=== PATIENT | male | born 1940 | race Hispanic/Latino ===

== ENCOUNTER 2018-06-20 09:21 | Day surgery (SDC) | payer MEDICARE, BC ==
[2018-06-20] MEDS ORDERED: cefTRIAXone IV 1 gm in Dextros 0 ML IVPB ONE (10:10)
[2018-06-20] MEDS ORDERED: Iohexol 240 (50 ml) ONE ×2 (10:10→11:32)
[2018-06-20] MEDS ORDERED: Lidocaine 2% Jelly (Uro-Jet) ONE (11:32)
[2018-06-20] MEDS ORDERED: cefTRIAXone IV 1 gm in Dextros 50 ML IVPB ONE (11:32)
[2018-06-20] MEDS ORDERED: Midazolam 2 MG/2 ML VIAL ONE (11:50)
[2018-06-20] MEDS ORDERED: Propofol 10 mg/ml Inj (20 ML) ONE (11:50)
[2018-06-20] MEDS ORDERED: ePHEDrine 50 mg/ml Inj ONE (13:19)
[2018-06-20] MEDS ORDERED: DiphenhydrAMINE 50 mg/ml Inj ONE (13:19)
--- NOTE | 2018-06-20 13:25 | PCM.SURG1 ---
Surgeon's Initial Post Op Note - Surgeon's Notes Surgeon: Fanny Yee Medical Lab Assistant: none Type of Anesthesia: General LMA Pre-Operative Diagnosis: hematuria, R hydronephrosis Operative Findings: Erythema of R renal calices, randalls plaque. bph Post-Operative Diagnosis: same. No hydronephrosis. No R ureteral tumor. Possible L upper uretral filling defect Operation Performed: cysto, bilat rtg pyelogram. R uretro-renoscopy,. R renal caliceal bx and laser fulg. R uretral stent insertion. L rtg pyelogram. Insertion of L ureteral stent. EUA Specimen/Specimens Removed: urine. caliceal bx Estimated Blood Loss: EBL {In ML}: 7 Blood Products Given: N/A Post-Op Condition: Good Date of Surgery/Procedure: 06/20/18 Time of Surgery/Procedure: 13:15
[2018-06-20] MEDS ORDERED: HYDROmorphone 0.5 mg/0.5 ml ISec IVP PRN (13:27)
[2018-06-20] MEDS ORDERED: Lactated Ringer's 1,000 ML IV ONE (13:30)
[2018-06-20] MEDS ORDERED: Oxycodone/Acetaminophen 5/325 mg Tab PO PRN (14:36)
[2018-06-20 15:58] VITALS: BP 141/79; PULSE 75; RESP 15; TEMP 97.8; O2SAT 98
--- NOTE | 2018-06-20 17:33 | RAD ---
Date of service: 06/20/2018 PROCEDURE: Intraoperative Fluoroscopy. HISTORY: HEMATURIA AND RT. HYDRONEPHROSIS FINDINGS: Fluoroscopic assistance was provided for bilateral retrograde and stent placement. Please refer to the operative report from Dr. THOMAS, [place]. Total fluoroscopic time (continuous mode) utilized during the procedure 118.2 (seconds). Dose report: DLP 1.64 (mGy/ m2):
--- NOTE | 2018-06-21 15:58 | RAD ---
Date of service: 06/20/2018 HISTORY: HEMATURIA AND RT. HYDRONEPHROSIS COMPARISON: No prior. FINDINGS: BOWEL: A product management intern radiograph demonstrates the bowel gas pattern to be unremarkable. No hepatic or splenic enlargement is appreciated. No masses or abnormal calcifications are identified. A 2nd film is labeled last film. This demonstrates bilateral ureteral stents. There is a small amount of residual contrast within the pelvicaliceal system bilateral following retrograde pyeloureterography. BONES: Normal. OTHER FINDINGS: None. IMPRESSION: Bilateral ureteral stents inserted.
--- NOTE | 2018-06-21 21:09 | OP ---
Copied To: Susan Yee MD Attending MD: Susan Yee MD PROCEDURE DATE: 06/20/2018 PREOPERATIVE DIAGNOSES: 1. Hematuria. 2. Right hydronephrosis. 3. Right ureteral tumor. POSTOPERATIVE DIAGNOSIS: No ureteral tumor found. PROCEDURES: Cystoscopy. Right retrograde pyelogram. Right ureterorenoscopy. Right renal calyceal biopsy and laser fulguration. Insertion of right ureteral stent. Left retrograde pyelogram. Insertion of left ureteral stent. Exam under anesthesia. OPERATING SURGEON: Susan Yee MD PROCEDURE FOLLOWS: The patient received perioperative antibiotics. Procedure was performed under general anesthesia. The patient was placed in lithotomy position. Genitalia were prepped and draped sterilely. A 22-Zambian cystoscope sheath was introduced under direct vision. Urethra, prostate, and bladder were inspected. FINDINGS: There was no stricture in the anterior urethra. There was evidence of trilobar prostatic hypertrophy. Prostatic urethra was occlusive. There were no mucosal lesions within the prostate. There was no bladder neck contracture. Prostatic urethra was approximately 3 cm in length. The bladder was inspected. There was no bladder tumor. There was no bladder stone. Urine was sent for bacteriologic examination. The ureteral orifices were identified and were normal in position and shape. There was no bladder tumor. There was no bladder stone. There was no bladder diverticulum. There was moderate bladder trabeculation. Procedure was formed under video endoscopic control as well as under fluoroscopic control. Occlusive tip right retrograde ureteral pyelogram was performed. Iodinated contrast dye was instilled via cone tip catheter into the right ureteral orifice. The right ureter and kidney were viewed sequentially. There was no evidence of obstruction or hydronephrosis within the right ureter. There was no filling defect within the right ureter. There was mild caliectasis. There was possible small filling defect noted in the mid and lower calyces of the right. A 0.035-inch guidewire was inserted into the right ureteral orifice and passed up to level of the kidney. A 10-Zambian double-lumen ureteral catheter was inserted over the guidewire into the distal ureter until lateral ureteral dilation. A second guidewire was inserted. A 7-Zambian flexible ureteroscope was advanced over the working wire under fluoroscopic control as well as under video endoscopic control. The ureteroscope was introduced through the cystoscope sheath. Ureteroscope was introduced into the ureter and up to the kidney. There was no evidence of ureteral tumor or obstruction. Ureteroscope passed in atraumatic fashion. The renal pelvis and calyces were inspected. There were a few small Kulwinder plaques noted on calyces. There was no free floating stone. There was no tumor identified. There was mild erythema of the collecting system of the middle calyx, with some linear pattern to the erythema. Freight Booker area was biopsied with the 3-Zambian flexible ureteroscopic basket. Two small fragments of tissue were obtained. Fulguration was performed with the 200 micron laser fiber using the holmium laser in the coagulation mode. The ureteroscope was removed under direct vision. There were no other abnormal findings. A 6-Zambian multi-length stent was inserted over the six remaining safety wire. Proper stent position was confirmed with fluoroscopy and endoscopy. Left retrograde ureteropyelogram was performed using the cone-tip catheter. Iodinated contrast dye was instilled via cone-tip catheter into left ureteral orifice. The left retrograde pyelogram demonstrated no evidence of obstruction of the ureteral collecting system. There was noted to be a possible filling defect just below the ureteropelvic junction. A 0.035-inch guidewire was inserted into the ureter up to level of the kidney. A 6-Zambian multi-length stent was inserted over the guidewire. Proper stent position was confirmed with fluoroscopy and endoscopy. The bladder was reinspected and confirmed the above findings. The bladder was then drained. Cystoscope sheath was removed. Rectal examination/exam under anesthesia was performed. There was no abnormal pelvic mass fixation or induration. Prostate was supple and smooth approximately 25 g to 30 g in size, without fixation, induration or nodularity. The patient tolerated the procedure without complication. Susan Yee MD
== END 2018-06-20 15:57 | disposition home or self-care (01) ==
LOC: C.SDS 09:21
PROVIDERS: ATTEND Urology
DX: N13.30 Unspecified hydronephrosis (principal); R31.0 Gross hematuria; N40.0 Benign prostatic hyperplasia without lower urinary tract symptoms
CPT/HCPCS: 50200; 52332; 74022; 87086; 88305; C1725; C1758; C1769; C2617; J0696; J1170; J7120

== ENCOUNTER 2018-06-24 10:01 | Day surgery (SDC) | payer MEDICARE, BC ==
[2018-06-24] MEDS ORDERED: cefTRIAXone IV 1 gm in Dextros 50 ML IVPB ONE (11:37)
[2018-06-24] MEDS ORDERED: Lidocaine 2% Jelly (Uro-Jet) ONE (11:37)
[2018-06-24] MEDS ORDERED: Propofol 10 mg/ml Inj (20 ML) ONE (11:49)
--- NOTE | 2018-06-24 12:21 | PCM.SURG1 ---
Surgeon's Initial Post Op Note - Surgeon's Notes Surgeon: Fanny Yee Airplane Cleaner: none Type of Anesthesia: IV Sedation, Local Pre-Operative Diagnosis: Hematuria Operative Findings: same Post-Operative Diagnosis: same Operation Performed: cysto. bilat stent removal Specimen/Specimens Removed: stents removed Estimated Blood Loss: EBL {In ML}: 0 Blood Products Given: N/A Drains Used: No Drains Post-Op Condition: Good Date of Surgery/Procedure: 06/24/18 Time of Surgery/Procedure: 12:21
[2018-06-24] MEDS ORDERED: HYDROmorphone 0.5 mg/0.5 ml ISec IVP PRN (12:22)
[2018-06-24] MEDS ORDERED: Lactated Ringer's 1,000 ML IV SCH (12:30)
[2018-06-24 13:12] VITALS: RESP 16
[2018-06-24 13:56] VITALS: BP 149/60; PULSE 64; TEMP 97.6; O2SAT 98
--- NOTE | 2018-06-26 01:50 | OP ---
Copied To: Susan Yee MD Attending MD: Susan Yee MD PROCEDURE DATE: 06/24/2018 DESCRIPTION OF PROCEDURE: As follows: The patient received perioperative antibiotics. Street Cleaning Equipment Operator film of the abdomen was obtained. Bilateral ureteral stents were identified. Anesthesia was provided by the anesthesiologist. The patient was placed in lithotomy position. Genitalia prepped and draped sterilely. Procedure was performed under video endoscopic control as well as under fluoroscopic control. The 22-Vietnamese cystoscope sheath was introduced under direct vision. Urethra, prostate, and bladder were inspected. There was noted to be moderate hematuria. Each ureteral stent was identified and grasped with rigid grasping forceps. The stents were removed. Fluoroscopic control was performed as well. The stents were removed intact. The bladder was then drained. Cystoscope sheath removed. Rectal examination was performed. Prostate was supple and smooth without fixation, induration, or nodularity. The patient tolerated the procedure without complication. Susan Yee MD
== END 2018-06-24 13:52 | disposition home or self-care (01) ==
LOC: C.SDS 10:01
PROVIDERS: ATTEND Urology
DX: R31.0 Gross hematuria (principal)
CPT/HCPCS: 52310; J0696

== ENCOUNTER 2018-07-07 09:09 | Day surgery (SDC) | payer MEDICARE, BC ==
[2018-07-07] MEDS ORDERED: Absorbable Gelatin Sponge Size 12-7 ONE (09:28)
[2018-07-07] MEDS ORDERED: Midazolam 2 MG/2 ML VIAL ONE (10:43)
--- NOTE | 2018-07-07 10:45 | CP.SDSHP ---
Same Day Surgery H & P - History Proposed Procedure: Right renal mass image guided biopsy Pre-Op Diagnosis: Right renal mass found on outside CT - Allergies Allergies: Allergies No Known Allergies Allergy (Verified 06/20/18 09:43) - Physical Exam Vital Signs: Vital Signs 07/07/18 09:44 Temperature 97.8 F Pulse Rate 65 Respiratory 20 Rate Blood Pressure 138/78 O2 Sat by Pulse 100 Oximetry Mental Status: Alert & Oriented x3 Neuro: WNL Heart: WNL Lungs: WNL - Impression Pt. Evaluated Today:Candidate for Anesthesia & Procedure: Yes Short Stay Discharge - Short Stay Discharge Admitting Diagnosis/Reason for Visit: MALIGNANT NEOPLASM OF RIGHT KIDNEY, EXCEPT RENAL P Disposition: HOME/ ROUTINE
--- NOTE | 2018-07-07 11:35 | PCM.SURG1 ---
Surgeon's Initial Post Op Note - Surgeon's Notes Surgeon: Yogesh Dietetic Assistant: None Type of Anesthesia: IV Sedation, Local Pre-Operative Diagnosis: Right renal mass Operative Findings: Right renal mass Post-Operative Diagnosis: Right renal mass Operation Performed: USG right renal mass biopsy. Specimen/Specimens Removed: 18G core biopsy samples were obtained. Estimated Blood Loss: EBL {In ML}: 1 Blood Products Given: N/A Drains Used: No Drains Post-Op Condition: Good Date of Surgery/Procedure: 07/07/18 Time of Surgery/Procedure: 11:25
[2018-07-07] MEDS ORDERED: Sodium Chloride 0.9% 1,000 ML IV ONE ×2 (11:50→14:30)
[2018-07-07 17:24] VITALS: BP 126/52; PULSE 63; RESP 19; TEMP 98.1; O2SAT 99
--- NOTE | 2018-07-19 21:51 | US ---
Right renal mass biopsy History: Right renal mass. Comparison: Comparison is made to CT scan done at outside institution. Anesthesia: Local indicated adenoids anesthesia care. Procedure and findings: Consent was obtained from the patient after discussing relative risks and benefits. The right flank region was prepped and draped in the usual sterile techniques. Initial ultrasound evaluation was obtained to identified the infiltrative mass in the right kidney. Percutaneous access site was chosen based on these images. 1% buffered lidocaine was used to anesthetize the skin and the underlying soft tissues. Using a 17 gauge coaxial needle, the infiltrative mass in the right kidney was accessed. After the inner stylet was removed the18 gauge biopsy system was introduced and core biopsy samples were obtained. Subsequently, the biopsy tract was embolized with 3-4 cc of Gel-Foam slurry. No post biopsy hematoma was identified on ultrasound images. The patient tolerated the procedure well without any adverse events. Impression: Successful ultrasound-guided biopsy of the right renal mass.
== END 2018-07-07 17:16 | disposition home or self-care (01) ==
LOC: C.SPRAD 09:09
PROVIDERS: ATTEND Orthopaedic Surgery Sports Medicine
DX: C64.1 Malignant neoplasm of right kidney, except renal pelvis (principal)
CPT/HCPCS: 49180; 50200; 76942; 88305; 88342; 99152; J2250; J2405; J3010; J7030

== ENCOUNTER 2018-07-17 13:43 | Inpatient (IN) | payer MEDICARE, BC ==
--- NOTE | 2018-07-17 14:39 | C.PDOC ---
History Of Present Illness 77 y/o male sent in by urologist for evaluation of persistent hematuria. Patient was seen here 06/29/18 for the same and had bilateral ureteral stents removed. He reports having intermittent hematuria and urinary frequency, without urinary obstruction, since then. Otherwise denies fever, chills, nausea , vomiting, diarrhea, or other complaints. Urologist: Dr. Susan Yee PMD: Dr. Barak Hernandes Time Seen by Provider: 07/17/18 13:56 Chief Complaint (Nursing): Male Genitourinary History Per: Patient History/Exam Limitations: no limitations Onset/Duration Of Symptoms: Persistent Current Symptoms Are (Timing): Still Present Associated Symptoms: Urinary Symptoms Additional History Per: Prior Records Past Medical History Reviewed: Historical Data, Nursing Documentation, Vital Signs Vital Signs: Last Vital Signs Temp 98 F 07/17/18 17:51 Pulse 78 07/17/18 17:51 Resp 18 07/17/18 17:51 BP 116/83 07/17/18 17:51 Pulse Ox 98 07/17/18 17:51 - Medical History PMH: COPD (on x ray), HTN (???), Chronic Kidney Disease, Sleep Apnea (no c pap) Other Surgeries: Cystoscopy Family History: States: No Known Family Hx - Social History Hx Alcohol Use: No Hx Substance Use: No - Immunization History Hx Tetanus Toxoid Vaccination: No Hx Influenza Vaccination: No Hx Pneumococcal Vaccination: No Review Of Systems Except As Marked, All Systems Reviewed And Found Negative. Constitutional: Negative for: Fever, Chills, Sweats Cardiovascular: Negative for: Chest Pain Respiratory: Negative for: Shortness of Breath Gastrointestinal: Negative for: Vomiting, Abdominal Pain, Diarrhea Genitourinary: Positive for: Frequency, Hematuria. Negative for: Incontinence Neurological: Negative for: Weakness, Numbness, Incoordination Physical Exam - Physical Exam Appears: No Acute Distress, Other (Elderly) Skin: Dry, Pale Head: Atraumatic, Normacephalic Eye(s): bilateral: Normal Inspection, PERRL, EOMI Oral Mucosa: Moist Neck: Normal ROM Chest: Symmetrical Cardiovascular: Rhythm Regular, No Murmur Respiratory: Normal Breath Sounds, No Rales, No Rhonchi, No Wheezing Gastrointestinal/Abdominal: Soft, No Tenderness (and no suprapubic fullness), No Guarding, No Rebound Back: Normal Inspection, No CVA Tenderness, No Vertebral Tenderness Extremity: Bilateral: Atraumatic, Normal Color And Temperature, Normal ROM Neurological/Psych: Oriented x3, Normal Speech Gait: Steady ED Course And Treatment - Laboratory Results Result Diagrams: 07/17/18 14:37 07/17/18 14:37 Lab Interpretation: Abnormal (ua: gross hematuria, bladder scan 200 cc post- void. No chowdhury indicated.) ECG: Interpreted By Me ECG Rhythm: Sinus Rhythm ECG Interpretation: Normal Rate From EC O2 Sat by Pulse Oximetry: 100 (RA) Pulse Ox Interpretation: Normal - Radiology CXR: Interpreted by Me CXR Interpretation: Yes: No Acute Disease Reevaluation Time: 15:39 Reassessment Condition: Improved - Physician Consult Information Outcome Of Conversation: 1500: d/w Dr. Susan Yee- ca to admit to any service and will consult. Plan for R renal CA resection. 1500: d/w Dr. Kin Harvey- [facility], ca to admit. Medical Decision Making Medical Decision Making: Impression: Hematuria, urinary frequency Plan: --Bladder scan --Blood work --Coag panel --Type/screen --Urinalysis --chest x-ray --EKG --Reassess and dispo 2pm Call placed to Dr. Susan Yee. persistent hematuria probably related to R renal cell CA HGB 10, hold off on blood tx for now per Urology Disposition Doctor Will See Patient In The: Hospital Counseled Patient/Family Regarding: Studies Performed, Diagnosis - Disposition Disposition: HOSPITALIZED Disposition Time: 15:40 Condition: GOOD - Clinical Impression Clinical Impression: Hematuria, Cancer of right kidney - Scribe Statement The provider has reviewed the documentation as recorded by the Scribe (Dasia Hernandez) Provider Attestation: All medical record entries made by the Scribe were at my direction and personally dictated by me. I have reviewed the chart and agree that the record accurately reflects my personal performance of the history, physical exam, medical decision making, and the department course for this patient. I have also personally directed, reviewed, and agree with the discharge instructions and disposition.
[2018-07-17 14:41] LABS: BASO % 0.3 % (0.0-2.0); EOS % 0.2 % (0.0-4.0); LYMPH # 0.9 K/uL (1.0-4.3); LYMPH % 14.5 % (20.0-40.0); MEAN CELL VOLUME 77.2 fL (80.0-94.0); MEAN CORPUSCULAR HEMOGLOBIN 25.9 pg (27.0-31.0); MEAN CORPUSCULAR HGB CONC 33.6 g/dL (33.0-37.0); MEAN PLATELET VOLUME 7.1 fL (7.2-11.7); MONO # 0.4 K/uL (0.0-0.8); MONO % 7.1 % (0.0-10.0); NEUT # 4.8 K/uL (1.8-7.0); NEUT % 77.9 % (50.0-75.0); RBC 3.88 Mil/uL (4.40-5.90); RED CELL DISTRIBUTION WIDTH 15.6 % (11.5-14.5); WHITE BLOOD COUNT 6.1 K/uL (4.8-10.8)
[2018-07-17 14:51] LABS: INR 1.1; PROTHROMBIN TIME 12.1 SECONDS (9.7-12.2)
[2018-07-17 15:06] LABS: ALB/GLOB RATIO 1.3 (1.0-2.1); ALBUMIN 4.1 g/dL (3.5-5.0); ALT/SGPT 21 U/L (21-72); AST/SGOT 16 U/L (17-59); BLOOD UREA NITROGEN 24 mg/dL (9-20); CALCIUM 9.6 mg/dl (8.6-10.4); GFR NON-AFRICAN AMERICAN 49
[2018-07-17 15:12] LABS: URINE BILIRUBIN NEGATIVE (NEGATIVE); URINE BLOOD 3+ (NEGATIVE); URINE CLARITY Hazy (Clear); URINE COLOR Red (YELLOW); URINE GLUCOSE (UA) NORMAL (Normal); URINE LEUKOCYTE ESTERASE NEG Leu/uL (Negative); URINE PROTEIN 2+ mg/dL (NEGATIVE); URINE UROBILINOGEN NORMAL mg/dL (0.2-1.0)
[2018-07-17 15:19] LABS: B-TYPE NATRIURETIC PEPTIDE 583 pg/mL (0-900)
--- NOTE | 2018-07-17 16:21 | RAD ---
Date of service: 07/17/2018 PROCEDURE: CHEST RADIOGRAPH, 1 VIEW HISTORY: SOB COMPARISON: None available. FINDINGS: LUNGS: No acute pulmonary disease appreciated bilaterally. PLEURA: No pneumothorax or pleural fluid seen. CARDIOVASCULAR: Mild cardiomegaly. No pulmonary vascular congestion. OSSEOUS STRUCTURES: No significant abnormalities. VISUALIZED UPPER ABDOMEN: Normal. OTHER FINDINGS: None. IMPRESSION: Mild cardiomegaly. No pulmonary vascular congestion. No infiltrates bilaterally.
[2018-07-17] MEDS ORDERED: Sodium Chloride 0.9% 1,000 ML ONE (16:38)
[2018-07-17] MEDS: Sodium Chloride 0.9% 1,000 ML IV SCH (17:15)
[2018-07-17 18:49] VITALS: RESP 20
[2018-07-18] MEDS: Sodium Chloride 0.9% 1,000 ML IV SCH ×3 (02:54→21:35)
--- NOTE | 2018-07-18 08:18 | CP.PCM.PN ---
Subjective - Date & Time of Evaluation Date of Evaluation: 07/18/18 Time of Evaluation: 08:00 - Subjective Subjective: PGY-2 Med Note- Dr. Kin Harvey's service 77 year old male with past medical history of hematuria (since December 2017) presents to the hospital for hematuria. Patient states it first started in December and at that time he had multiple procedures done at [facility]. Patient states while at [facility] he went into cardiac arrest during one of the procedures. Patient states he has pain every time he urinates and his urine is bright red and sometimes he urinates clots also. He denies abdominal pain, fever, nausea, vomiting, headache, shortness of breath or chest pain. Urology: Dr. Susan Yee Past Medical History: hematuria Past Surgical History: 06/20/18: cysto, bilat rtg pyelogram. R uretro-renoscopy, . R renal caliceal bx and laser fulg. R uretral stent insertion. L rtg pyelogram. Insertion of L ureteral stent. 06/24/18: cysto. bilat stent removal. 07/07/48: USG right renal mass biopsy. 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 Objective - Vital Signs/Intake and Output Vital Signs (last 24 hours): Temp Pulse Resp BP Pulse Ox 97.8 F 57 L 20 132/72 99 07/18/18 07:25 07/18/18 07:25 07/18/18 07:25 07/18/18 07:25 07/18/18 07:25 Intake and Output: 07/18/18 07/18/18 06:59 18:59 Intake Total 1000 Balance 1000 - Medications Medications: Current Medications Cefepime HCl 1 gm/ Dextrose 50 mls @ 100 mls/hr IVPB DAILY SAL PRN Reason: Protocol Last Admin: 07/17/18 16:55 Dose: 100 mls/hr Sodium Chloride (Sodium Chloride 0.9%) 1,000 mls @ 100 mls/hr IV .Q10H SAL Last Admin: 07/18/18 02:54 Dose: 100 mls/hr Multivitamins (Hexavitamin) 1 tab PO DAILY SAL Pantoprazole Sodium (Protonix Susp) 40 mg PO DAILY [facility] Tamsulosin HCl (Flomax) 0.4 mg PO DAILY SAL - Labs Labs: 07/17/18 14:37 07/17/18 14:37 PT 12.1 SECONDS (9.7-12.2) 07/17/18 14:37 INR 1.1 07/17/18 14:37 APTT 31 SECONDS (21-34) 07/17/18 14:37 - Constitutional Appears: No Acute Distress - Head Exam Head Exam: ATRAUMATIC, NORMAL INSPECTION - Eye Exam Eye Exam: EOMI, Normal appearance, PERRL Pupil Exam: NORMAL ACCOMODATION - ENT Exam ENT Exam: Mucous Membranes Moist - Respiratory Exam Respiratory Exam: Clear to Ausculation Bilateral, NORMAL BREATHING PATTERN - Cardiovascular Exam Cardiovascular Exam: REGULAR RHYTHM, +S1, +S2 - GI/Abdominal Exam GI & Abdominal Exam: Soft, Normal Bowel Sounds. absent: Tenderness - Extremities Exam Extremities Exam: Normal Inspection. absent: Pedal Edema, Tenderness - Neurological Exam Neurological Exam: Alert, Awake, Oriented x3 - Skin Skin Exam: Normal Color Assessment and Plan - Assessment and Plan (Free Text) Assessment: Hematuria/Dysuria - Urology Consult: Dr. Susan Yee --> help appreciated - UA: Urine RBC 5259 - f/u urine culture - s/p biopsy of right renal mass 06/20/18: fragments of benign denuded urothelial mucosa - Cardio Consult: Dr. Holt --> help appreciated - for medical clearance - f/u ECHO - Medications: * Flomax .4mg daily * NS @100cc/hr * Cefepime IV daily Prophylaxis - DVT risk 2: SCDs - VTE contraindication: hematuria - GI prophylaxis not indicated All medical management per Dr. Jaclyn Harvey
[2018-07-18] MEDS ORDERED: Pantoprazole 40 mg Susp UD PO SCH (10:00)
--- NOTE | 2018-07-18 12:43 | CP.PCM.CON ---
Past Patient History - Past Medical History & Family History Past Medical History?: Yes - Past Social History Smoking Status: Never Smoked - CARDIAC Hx Cardiac Disorders: No - PULMONARY Hx Respiratory Disorders: Yes Hx Chronic Obstructive Pulmonary Disease (COPD): Yes (on x ray) Hx Sleep Apnea: Yes (no c pap) - NEUROLOGICAL Hx Neurological Disorder: No - HEENT Hx HEENT Problems: No - RENAL Hx Chronic Kidney Disease: Yes - ENDOCRINE/METABOLIC Hx Endocrine Disorders: No - HEMATOLOGICAL/ONCOLOGICAL Hx Blood Disorders: Yes Hx Cancer: Yes (KIDNEY CANCER??RENAL MASS) - INTEGUMENTARY Hx Dermatological Problems: No - MUSCULOSKELETAL/RHEUMATOLOGICAL Hx Musculoskeletal Disorders: No Hx Falls: Yes - GASTROINTESTINAL Hx Gastrointestinal Disorders: No - GENITOURINARY/GYNECOLOGICAL Hx Genitourinary Disorders: Yes Hx Hematuria: Yes - PSYCHIATRIC Hx Psychophysiologic Disorder: No Hx Substance Use: No - SURGICAL HISTORY Hx Surgeries: Yes Other/Comment: cystoscopies - ANESTHESIA Hx Anesthesia: Yes Hx Anesthesia Reactions: Yes (cardiac arrest post cysto dec 2017 per pt) Hx Malignant Hyperthermia: No Has any member of the family had a problem w/ anesthesia?: No Meds Allergies/Adverse Reactions: Allergies Allergy/AdvReac Type Severity Reaction Status Date / Time No Known Allergies Allergy Verified 07/17/18 13:54 - Medications Medications: Current Medications Cefepime HCl 1 gm/ Dextrose 50 mls @ 100 mls/hr IVPB DAILY SAL PRN Reason: Protocol Last Admin: 07/17/18 16:55 Dose: 100 mls/hr Sodium Chloride (Sodium Chloride 0.9%) 1,000 mls @ 100 mls/hr IV .Q10H SAL Last Admin: 07/18/18 02:54 Dose: 100 mls/hr Multivitamins (Hexavitamin) 1 tab PO DAILY SAL Pantoprazole Sodium (Protonix Susp) 40 mg PO DAILY SAL Tamsulosin HCl (Flomax) 0.4 mg PO DAILY SAL Results - Vital Signs Recent Vital Signs: Last Vital Signs Temp 97.8 F 07/18/18 07:25 Pulse 57 L 07/18/18 07:25 Resp 20 07/18/18 07:25 BP 132/72 07/18/18 07:25 Pulse Ox 99 07/18/18 07:25 - Labs Result Diagrams: 07/17/18 14:37 07/17/18 14:37 Labs: Laboratory Results - last 24 hr 07/17/18 07/17/18 07/17/18 14:37 14:37 14:37 WBC 6.1 RBC 3.88 L Hgb 10.0 L Hct 29.9 L MCV 77.2 L MCH 25.9 L MCHC 33.6 RDW 15.6 H Plt Count 214 MPV 7.1 L Neut % (Auto) 77.9 H Lymph % (Auto) 14.5 L Weld % (Auto) 7.1 Eos % (Auto) 0.2 Baso % (Auto) 0.3 Neut # (Auto) 4.8 Lymph # (Auto) 0.9 L Weld # (Auto) 0.4 Eos # (Auto) 0.0 Baso # (Auto) 0.0 PT 12.1 INR 1.1 APTT 31 Sodium Potassium Chloride Carbon Dioxide Anion Gap BUN Creatinine Est GFR ( Amer) Est GFR (Non-Af Amer) Random Glucose Calcium Total Bilirubin AST ALT Alkaline Phosphatase Troponin I NT-Pro-B Natriuret Pep Total Protein Albumin Globulin Albumin/Globulin Ratio Urine Color Red Urine Clarity Hazy Urine pH 6.0 Ur Specific [place] 1.017 Urine Protein 2+ H Urine Glucose (UA) Normal Urine Ketones Negative Urine Blood 3+ H Urine Nitrate Negative Urine Bilirubin Negative Urine Urobilinogen Normal Ur Leukocyte Esterase Neg Urine RBC (Auto) 5259 H Blood Type Antibody Screen 07/17/18 07/17/18 14:37 14:37 WBC RBC Hgb Hct MCV MCH MCHC RDW Plt Count MPV Neut % (Auto) Lymph % (Auto) Weld % (Auto) Eos % (Auto) Baso % (Auto) Neut # (Auto) Lymph # (Auto) Weld # (Auto) Eos # (Auto) Baso # (Auto) PT INR APTT Sodium 139 Potassium 4.8 Chloride 104 Carbon Dioxide 23 Anion Gap 17 BUN 24 H Creatinine 1.4 Est GFR ( Amer) 59 Est GFR (Non-Af Amer) 49 Random Glucose 107 Calcium 9.6 Total Bilirubin 0.7 AST 16 L ALT 21 Alkaline Phosphatase 78 Troponin I < 0.0120 NT-Pro-B Natriuret Pep 583 Total Protein 7.4 Albumin 4.1 Globulin 3.2 Albumin/Globulin Ratio 1.3 Urine Color Urine Clarity Urine pH Ur Specific [place] Urine Protein Urine Glucose (UA) Urine Ketones Urine Blood Urine Nitrate Urine Bilirubin Urine Urobilinogen Ur Leukocyte Esterase Urine RBC (Auto) Blood Type A POSITIVE Antibody Screen Negative Assessment & Plan - Assessment and Plan (Free Text) Assessment: IMP: Hematuria R renal tumor full note t/f YS - Date & Time Date: 07/18/18 Time: 12:43
[2018-07-18] MEDS: Multiple Vitamins Tab PO SCH (13:38)
[2018-07-18 14:01] LABS: BASO % 0.6 % (0.0-2.0); EOS % 1.1 % (0.0-4.0); HEMOGLOBIN 10.1 g/dL (12.0-18.0); LYMPH # 1.2 K/uL (1.0-4.3); LYMPH % 27.4 % (20.0-40.0); MEAN CELL VOLUME 77.9 fL (80.0-94.0); MEAN CORPUSCULAR HEMOGLOBIN 25.9 pg (27.0-31.0); MEAN CORPUSCULAR HGB CONC 33.2 g/dL (33.0-37.0); MEAN PLATELET VOLUME 7.4 fL (7.2-11.7); MONO # 0.3 K/uL (0.0-0.8); MONO % 6.9 % (0.0-10.0); NEUT # 2.9 K/uL (1.8-7.0); RBC 3.91 Mil/uL (4.40-5.90); RED CELL DISTRIBUTION WIDTH 15.6 % (11.5-14.5); WHITE BLOOD COUNT 4.6 K/uL (4.8-10.8)
[2018-07-18 14:26] LABS: ALB/GLOB RATIO 1.3 (1.0-2.1); ALBUMIN 3.6 g/dL (3.5-5.0); ALT/SGPT 17 U/L (21-72); AST/SGOT 14 U/L (17-59); BLOOD UREA NITROGEN 22 mg/dL (9-20); CALCIUM 7.9 mg/dl (8.6-10.4); GFR NON-AFRICAN AMERICAN 53
--- NOTE | 2018-07-18 19:56 | CP.PCM.HP ---
Past Patient History - Past Medical History & Family History Past Medical History?: Yes - Past Social History Smoking Status: Never Smoked - CARDIAC Hx Cardiac Disorders: No - PULMONARY Hx Respiratory Disorders: Yes Hx Chronic Obstructive Pulmonary Disease (COPD): Yes (on x ray) Hx Sleep Apnea: Yes (no c pap) - NEUROLOGICAL Hx Neurological Disorder: No - HEENT Hx HEENT Problems: No - RENAL Hx Chronic Kidney Disease: Yes - ENDOCRINE/METABOLIC Hx Endocrine Disorders: No - HEMATOLOGICAL/ONCOLOGICAL Hx Blood Disorders: Yes Hx Cancer: Yes (KIDNEY CANCER??RENAL MASS) - INTEGUMENTARY Hx Dermatological Problems: No - MUSCULOSKELETAL/RHEUMATOLOGICAL Hx Musculoskeletal Disorders: No Hx Falls: Yes - GASTROINTESTINAL Hx Gastrointestinal Disorders: No - GENITOURINARY/GYNECOLOGICAL Hx Genitourinary Disorders: Yes Hx Hematuria: Yes - PSYCHIATRIC Hx Psychophysiologic Disorder: No Hx Substance Use: No - SURGICAL HISTORY Hx Surgeries: Yes Other/Comment: cystoscopies - ANESTHESIA Hx Anesthesia: Yes Hx Anesthesia Reactions: Yes (cardiac arrest post cysto dec 2017 per pt) Hx Malignant Hyperthermia: No Has any member of the family had a problem w/ anesthesia?: No Meds Allergies/Adverse Reactions: Allergies Allergy/AdvReac Type Severity Reaction Status Date / Time No Known Allergies Allergy Verified 07/17/18 13:54 Physical Exam - Constitutional Appears: Well - Head Exam Head Exam: ATRAUMATIC, NORMAL INSPECTION, NORMOCEPHALIC - Eye Exam Eye Exam: EOMI, Normal appearance, PERRL Pupil Exam: NORMAL ACCOMODATION, PERRL - ENT Exam ENT Exam: Mucous Membranes Moist, Normal Exam - Neck Exam Neck exam: Positive for: Normal Inspection - Respiratory Exam Respiratory Exam: Decreased Breath Sounds - Cardiovascular Exam Cardiovascular Exam: REGULAR RHYTHM, +S1, +S2 - GI/Abdominal Exam GI & Abdominal Exam: Diminished Bowel Sounds, Soft - Rectal Exam Rectal Exam: Deferred Results - Vital Signs Recent Vital Signs: Last Vital Signs Temp 98.2 F 07/18/18 15:38 Pulse 66 07/18/18 15:38 Resp 20 07/18/18 15:38 BP 103/55 L 07/18/18 15:38 Pulse Ox 96 07/18/18 15:38 - Labs Result Diagrams: 07/18/18 13:54 07/18/18 13:54 Labs: Laboratory Results - last 24 hr 08/27/18 08/27/18 13:54 13:54 WBC 4.6 L RBC 3.91 L Hgb 10.1 L Hct 30.5 L MCV 77.9 L MCH 25.9 L MCHC 33.2 RDW 15.6 H Plt Count 233 MPV 7.4 Neut % (Auto) 64.0 Lymph % (Auto) 27.4 [place] % (Auto) 6.9 Eos % (Auto) 1.1 Baso % (Auto) 0.6 Neut # (Auto) 2.9 Lymph # (Auto) 1.2 [place] # (Auto) 0.3 Eos # (Auto) 0.0 Baso # (Auto) 0.0 Sodium 138 Potassium 4.0 Chloride 106 Carbon Dioxide 23 Anion Gap 14 BUN 22 H Creatinine 1.3 Est GFR ( Amer) > 60 Est GFR (Non-Af Amer) 53 Random Glucose 121 H Calcium 7.9 L Phosphorus 3.1 Magnesium 2.0 Total Bilirubin 0.5 AST 14 L ALT 17 L Alkaline Phosphatase 60 Total Protein 6.4 Albumin 3.6 Globulin 2.8 Albumin/Globulin Ratio 1.3 TSH 3rd Generation 1.49
--- NOTE | 2018-07-19 00:01 | CON ---
Copied To: Bairon Holt MD Attending MD: Bairon Holt MD DATE: 07/18/2018 REASON FOR CONSULTATION: Preoperative evaluation. HISTORY OF PRESENT ILLNESS: The patient is a 77-year-old white male, who has a history of benign prostatic hypertrophy and history of what sounded to be ureteric stenting in the past. The patient presented because of gross hematuria and lower abdominal pain. The patient underwent recently biopsy of the right renal collecting system and the report was consistent with fragment of benign denuded urethral mucosa. The patient is unaware of any prior cardiac history and denies any history of chest pain in the past. SOCIAL HISTORY: Nonsmoker, nondrinker. MEDICATIONS: Cefepime 1 g intravenously daily, Flomax 0.4 mg once a day, multivitamin 1 tablet once a day, Protonix 40 mg p.o. once a day, normal saline at 10 mL an hour. REVIEW OF SYSTEMS: No hematemesis or melena. No fever or chills. No flank pain. PHYSICAL EXAMINATION: GENERAL: The patient is an elderly male, who does not appear to be in any distress. VITAL SIGNS: Blood pressure 132/72, heart rate 57, temperature 97.8, respirations 20. HEENT: Slightly pale conjunctivae. CHEST: Clear. HEART: S1 and S2 regular. ABDOMEN: Soft. EXTREMITIES: No edema. LABORATORY DATA: Today's SMA-7: Sodium 139, potassium 4.8, chloride 104, CO2 23, glucose 107, BUN 24, creatinine 1.4. One set of troponin is negative. PT, PTT, INR are within normal limits. Hemoglobin and hematocrit 10 and 29.9, white count and platelet count are within normal limits. EKG revealed sinus rhythm at rate of 66. Chest x-ray was unremarkable. ASSESSMENT: 1. Gross hematuria. 2. Mild anemia. 3. Mild sinus bradycardia. The patient's heart rate today is 57. RECOMMENDATIONS: Continue current IV Cefepime at 1 g daily, multivitamin 1 tablet once a day, Flomax 0.4 mg once a day, Protonix 40 mg once a day. I would review the echocardiographic study performed today and obtain TSH level. Bairon Holt MD
[2018-07-19 06:52] LABS: BASO % 0.4 % (0.0-2.0); EOS # 0.1 K/uL (0.0-0.7); EOS % 1.3 % (0.0-4.0); LYMPH # 1.5 K/uL (1.0-4.3); LYMPH % 30.2 % (20.0-40.0); MEAN CELL VOLUME 77.1 fL (80.0-94.0); MEAN CORPUSCULAR HEMOGLOBIN 25.9 pg (27.0-31.0); MEAN CORPUSCULAR HGB CONC 33.6 g/dL (33.0-37.0); MEAN PLATELET VOLUME 7.3 fL (7.2-11.7); MONO # 0.4 K/uL (0.0-0.8); MONO % 8.5 % (0.0-10.0); NEUT # 2.9 K/uL (1.8-7.0); NEUT % 59.6 % (50.0-75.0); RBC 3.46 Mil/uL (4.40-5.90); RED CELL DISTRIBUTION WIDTH 15.4 % (11.5-14.5); WHITE BLOOD COUNT 4.9 K/uL (4.8-10.8)
[2018-07-19 07:05] LABS: ALB/GLOB RATIO 1.2 (1.0-2.1); ALBUMIN 3.2 g/dL (3.5-5.0); CALCIUM 8.1 mg/dl (8.6-10.4)
--- NOTE | 2018-07-19 07:58 | CP.PCM.PN ---
Subjective - Date & Time of Evaluation Date of Evaluation: 07/19/18 Time of Evaluation: 08:00 - Subjective Subjective: PGY-2 Med Note- Dr. Kin Harvey's service Patient was seen and examined at bedside in the AM. Patient states he continues to urinate every hour and he is still urinating clots. He states he is feeling frustrated as this has been occurring since December. Patient also states he is feeling a bit constipated since his last bowel movement was 2 days ago. He states he is passing flatus. Patient denies other complaints at this time. Objective - Vital Signs/Intake and Output Vital Signs (last 24 hours): Temp Pulse Resp BP Pulse Ox 99.0 F 64 20 113/62 96 07/18/18 23:40 07/18/18 23:40 07/18/18 23:40 07/18/18 23:40 07/18/18 23:40 Intake and Output: 07/19/18 07/19/18 06:59 18:59 Intake Total 940 Output Total 900 Balance 40 - Medications Medications: Current Medications Cefepime HCl 1 gm/ Dextrose 50 mls @ 100 mls/hr IVPB DAILY [facility] PRN Reason: Protocol Last Admin: 07/18/18 10:30 Dose: 100 mls/hr Sodium Chloride (Sodium Chloride 0.9%) 1,000 mls @ 100 mls/hr IV .Q10H [facility] Last Admin: 07/18/18 21:35 Dose: 100 mls/hr Multivitamins (Hexavitamin) 1 tab PO DAILY [facility] Last Admin: 07/18/18 13:38 Dose: 1 tab Tamsulosin HCl (Flomax) 0.4 mg PO DAILY [facility] Last Admin: 07/18/18 10:00 Dose: 0.4 mg - Labs Labs: 07/19/18 06:26 07/19/18 06:26 PT 12.1 SECONDS (9.7-12.2) 07/17/18 14:37 INR 1.1 07/17/18 14:37 APTT 31 SECONDS (21-34) 07/17/18 14:37 - Constitutional Appears: No Acute Distress - Head Exam Head Exam: ATRAUMATIC, NORMAL INSPECTION - Eye Exam Eye Exam: EOMI, Normal appearance, PERRL Pupil Exam: NORMAL ACCOMODATION - ENT Exam ENT Exam: Mucous Membranes Moist - Respiratory Exam Respiratory Exam: Clear to Ausculation Bilateral, NORMAL BREATHING PATTERN - Cardiovascular Exam Cardiovascular Exam: REGULAR RHYTHM, +S1, +S2 - GI/Abdominal Exam GI & Abdominal Exam: Soft, Normal Bowel Sounds. 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 Susan Yee --> help appreciated - UA: Urine RBC 5259 - urine culture: Negative - s/p biopsy of right renal mass 07/07/18: pending pathology results spoke with Dr. Susan Yee who stated he spoke with pathology and they stated patient's biopsy is renal invasive urothelial cancer - Cardio Consult: Dr. Holt --> help appreciated - for medical clearance - Chest Xray: Mild cardiomegaly. No pulmonary vascular congestion. No infiltrates bilaterally. - EKG: NSR - f/u ECHO - f/u bone scan, CT of the abdomen/pelvis with and without IV contrast (patient to - Medications: * Flomax .4mg daily * Cefepime IV daily discontinued 07/19/18 Anemia -secondary to hematuria - Ferosol 325mg daily with Colace BID Constipation - last bowel movement was 2 days ago - Colace BID - Prune juice with each meal Prophylaxis - DVT risk 2: SCDs - VTE contraindication: hematuria - GI prophylaxis not indicated - Physical Therapy Disposition: Patient to be discharged after CT abd/pelvis and bone scan are complete. Patient to follow up as an outpatient with urologist Dr. Jose Andre # [phone]. Patient has an appointment scheduled for 07/21/[address] Jose Andre [address] [place] [address] All medical management per Dr. Jaclyn Harvey
--- NOTE | 2018-07-19 08:55 | CARD ---
APPROVED REPORT Date of service: 07/17/2018 EKG Measurement Heart [id number] <Conclusion> Normal sinus rhythm Normal ECG
[2018-07-19] MEDS: Multiple Vitamins Tab PO SCH (09:36)
[2018-07-19] MEDS ORDERED: Iohexol 350mg/ml 100 ML ONE (16:03)
--- NOTE | 2018-07-19 18:08 | CP.PCM.PN ---
Subjective - Date & Time of Evaluation Date of Evaluation: 07/19/18 Time of Evaluation: 09:30 - Subjective Subjective: clinically same Objective - Vital Signs/Intake and Output Vital Signs (last 24 hours): Temp Pulse Resp BP Pulse Ox 97.8 F 62 20 103/65 98 07/19/18 17:40 07/19/18 17:40 07/19/18 17:40 07/19/18 17:40 07/19/18 17:40 Intake and Output: 07/19/18 07/19/18 06:59 18:59 Intake Total 940 Output Total 900 Balance 40 - Medications Medications: Current Medications Docusate Sodium (Colace) 100 mg PO BID [facility] Last Admin: 07/19/18 17:26 Dose: 100 mg Ferrous Sulfate (Feosol) 325 mg PO DAILY [facility] Multivitamins (Hexavitamin) 1 tab PO DAILY [facility] Last Admin: 07/19/18 09:36 Dose: 1 tab Tamsulosin HCl (Flomax) 0.4 mg PO DAILY [facility] Last Admin: 07/19/18 09:36 Dose: 0.4 mg - Labs Labs: 07/19/18 06:26 07/19/18 06:26 PT 12.1 SECONDS (9.7-12.2) 07/17/18 14:37 INR 1.1 07/17/18 14:37 APTT 31 SECONDS (21-34) 07/17/18 14:37 - Constitutional Appears: Well - Head Exam Head Exam: ATRAUMATIC, NORMAL INSPECTION, NORMOCEPHALIC - Eye Exam Eye Exam: EOMI, Normal appearance, PERRL Pupil Exam: NORMAL ACCOMODATION, PERRL - ENT Exam ENT Exam: Mucous Membranes Moist, Normal Exam - Neck Exam Neck Exam: Full ROM, Normal Inspection. absent: Lymphadenopathy - Respiratory Exam Respiratory Exam: Decreased Breath Sounds - Cardiovascular Exam Cardiovascular Exam: REGULAR RHYTHM, +S1, +S2 - GI/Abdominal Exam GI & Abdominal Exam: Soft, Diminished Bowel Sounds - Rectal Exam Rectal Exam: Deferred
--- NOTE | 2018-07-19 18:18 | CT ---
Date of service: 07/19/2018 PROCEDURE: CT Abdomen and Pelvis with and without intravenous contrast HISTORY: hematuria COMPARISON: 06/22/2018 Please note that outside study from 06/22/2018 is submitted without report from this prior examination. TECHNIQUE: Axial images of the abdomen were obtained in the pre contrast, portal venous and delayed phases of enhancement. Coronal and sagittal reformats were generated. Contrast dose: 100 mL Omnipaque 350 Radiation dose: Total exam DLP = 1138.53 mGy-cm. This CT exam was performed using one or more of the following dose reduction techniques: Automated exposure control, adjustment of the mA and/or kV according to patient size, and/or use of iterative reconstruction technique. FINDINGS: LOWER THORAX: Small hiatal hernia LIVER: Unremarkable. No gross lesion or ductal dilatation. GALLBLADDER AND BILE DUCTS: Contracted. No calcified gallstones PANCREAS: Unremarkable. No gross lesion or ductal dilatation. SPLEEN: Unremarkable. ADRENALS: Unremarkable. No mass. KIDNEYS AND URETERS: Evaluation of the right kidney is limited by dysfunction with asymmetric diminished enhancement of the right kidney and diminished excretion of contrast material into the right renal collecting system. Suspect infiltrating mass of the mid to upper right kidney, roughly 5.8 cm in greatest dimension. This is similar to what is demonstrated on prior outside CT examination. Previously evident hydronephrosis has resolved. There are 2 right renal cortical cysts. Upper pole right kidney, 5.0 cm and upper pole right kidney, 2.0 cm. These cysts demonstrate no enhancement following intravenous contrast administration. There is no renal calculus. There is infiltration of the right renal pelvic fat. Urographic phase images are grossly limited on the right side. Left pelvicaliceal system unremarkable in appearance. Proximal portion of the left ureter is unremarkable. The distal half of the left ureter is poorly opacified. Unable to adequately evaluate right renal collecting system or right ureter. VASCULATURE: Unremarkable. No aortic aneurysm. BOWEL: Mild retained feces. No bowel obstruction. APPENDIX: Not identified. No secondary findings. PERITONEUM: Unremarkable. No free fluid. No free air. LYMPH NODES: There is extensive aortic caval retroperitoneal lymphadenopathy. There is no evidence of right renal vein or inferior vena cava invasion. BLADDER: Mild thickening of the bladder wall, possibly artifactual due to inadequate distention. REPRODUCTIVE: Unremarkable prostate. BONES: There is a rounded sclerotic lesion in the L4 vertebral body common nonspecific. There is also a sclerotic lesion in the T10 vertebral body. There is unilateral left L5 spondylolysis. There is no spondylolisthesis. OTHER FINDINGS: None. IMPRESSION: Suspected infiltrating mass of the right kidney. No hydronephrosis. Limited urographic phase evaluation due to limited excretion of contrast by the right kidney. Retroperitoneal lymphadenopathy. Small hiatal hernia. Two sclerotic osseous lesions, nonspecific. Additional minor findings as above.
--- NOTE | 2018-07-19 19:01 | PN ---
Copied To: Bairon Holt MD Attending MD: Bairon Holt MD DATE: 07/19/2018 SUBJECTIVE: The patient denies any chest pain, shortness of breath, or back pain. PHYSICAL EXAMINATION: VITAL SIGNS: Blood pressure 137/68, heart rate 68, temperature 97.8, and respirations 20. HEENT: Pale conjunctivae. CHEST: Clear. HEART: S1 and S2 regular. EXTREMITIES: No edema. LABORATORY DATA: Today's SMA-7 is within normal limit except for BUN of 24. TSH level is within normal limit at 1.49 as of yesterday. Hemoglobin and hematocrit are 9 and 26.7. White count and platelet count are within normal limit. Official echocardiographic study is pending; however, my own review revealed mild septal hypokinesis with normal ejection fraction. ASSESSMENT: 1. Joseph hematuria. 2. Mild sinus bradycardia. 3. Rule out underlying malignancy. RECOMMENDATIONS: Continue current Flomax, multivitamin, and Feosol. The patient can undergo cystoscopy from the cardiac point of view and the patient is scheduled to undergo bone scan today. Bairon Holt MD
--- NOTE | 2018-07-19 19:29 | CON ---
Copied To: Susan Yee MD Attending MD: Susan Yee MD DATE: 07/18/2018 UROLOGY CONSULTATION REQUESTED BY: Michelle Harvey MD REASON FOR CONSULTATION: Hematuria. HISTORY OF PRESENT ILLNESS: The patient is a 77-year-old male with hematuria. The patient is in otherwise good health. The patient has a history of hematuria for the past six months. The patient has had previous evaluation. He was found to have bleeding from the right renal unit. The patient had previous cystoscopy and retrograde pyelogram. The patient had previous ureterorenoscopy. Two weeks ago, the patient underwent percutaneous biopsy. Preliminary report is malignancy of the right kidney. Further results are pending regarding the origin and nature of this renal tumor. The patient is now admitted for increased hematuria. He also reports that he had passed small clots. He also reports he had urinary frequency and difficulty voiding. The patient this morning reports that his urinary symptoms have improved. He still has hematuria, but dust box tender. The patient reports no recent fever or rigors. No chest pain. The patient has fair appetite. He also reports recent weight loss. He had previous nausea. This has improved. There is no history of urolithiasis. The patient reports fair appetite. Of note on previous CT scan, the patient had retroperitoneal lymphadenopathy as well. Further details, I reviewed as per the medical record and medical chart. PHYSICAL EXAMINATION: GENERAL: The patient is a well-developed, well-nourished elderly male. The patient is awake and alert. The patient is oriented. ABDOMEN: Soft, nontender, and nondistended. No mass or organomegaly. BACK: No CVA tenderness. GENITALIA: Without inflammation. LABORATORY DATA: Reviewed. Anemia is noted. IMPRESSION: Right renal tumor. Hematuria. Anemia. RECOMMENDATIONS AND PLAN: The patient will require right nephrectomy. Nature of surgery including risks, benefits, and alternatives have been explained to the patient. Further therapy to follow according to the patient's clinical course. Thank you for recommending the patient in urology consultation. Susan Yee MD cc: Michelle Harvey MD [facility] # [phone]
[2018-07-20 02:47] VITALS: PULSE 65
[2018-07-20 08:05] VITALS: BP 118/67; TEMP 98; O2SAT 99
--- NOTE | 2018-07-20 09:01 | CP.PCM.PN ---
Subjective - Date & Time of Evaluation Date of Evaluation: 07/20/18 Time of Evaluation: 09:00 - Subjective Subjective: Progress note for Dr. Miller Harvey's Service Patient seen and examined at bedside. Patient reports he is ready to go home. Denied any acute complaints. --- Disposition: Patient is discharged today. Patient to follow up as an outpatient with urologist Dr. Jose Andre # [phone]. Patient has an appointment scheduled for 07/21/[address] Jose Andre [address] [place] [address] Objective - Vital Signs/Intake and Output Vital Signs (last 24 hours): Temp Pulse Resp BP Pulse Ox 98.0 F 65 20 118/67 99 07/20/18 07:00 07/20/18 07:00 07/20/18 07:00 07/20/18 07:00 07/20/18 07:00 Intake and Output: 07/20/18 07/20/18 06:59 18:59 Intake Total 480 Balance 480 - Medications Medications: Current Medications Docusate Sodium (Colace) 100 mg PO BID [facility] Last Admin: 07/19/18 17:26 Dose: 100 mg Ferrous Sulfate (Feosol) 325 mg PO DAILY [facility] Last Admin: 07/20/18 08:45 Dose: Not Given Multivitamins (Hexavitamin) 1 tab PO DAILY [facility] Last Admin: 07/19/18 09:36 Dose: 1 tab Tamsulosin HCl (Flomax) 0.4 mg PO DAILY [facility] Last Admin: 07/19/18 09:36 Dose: 0.4 mg - Labs Labs: 07/19/18 06:26 07/19/18 06:26 PT 12.1 SECONDS (9.7-12.2) 07/17/18 14:37 INR 1.1 07/17/18 14:37 APTT 31 SECONDS (21-34) 07/17/18 14:37 - Additional Findings Additional findings: - Constitutional Appears: No Acute Distress - Head Exam Head Exam: ATRAUMATIC, NORMAL INSPECTION - Eye Exam Eye Exam: EOMI, Normal appearance, PERRL Pupil Exam: NORMAL ACCOMODATION - ENT Exam ENT Exam: Mucous Membranes Moist - Respiratory Exam Respiratory Exam: Clear to Ausculation Bilateral, NORMAL BREATHING PATTERN - Cardiovascular Exam Cardiovascular Exam: REGULAR RHYTHM, +S1, +S2 - GI/Abdominal Exam GI & Abdominal Exam: Soft, Normal Bowel Sounds. 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 Susan Yee --> help appreciated - UA: Urine RBC 5259 - urine culture: Negative - s/p biopsy of right renal mass 07/07/18: pending pathology results spoke with Dr. Susan Yee who stated he spoke with pathology and they stated patient's biopsy is renal invasive urothelial cancer - Cardio Consult: Dr. Holt --> help appreciated - for medical clearance - Chest Xray: Mild cardiomegaly. No pulmonary vascular congestion. No infiltrates bilaterally. - EKG: NSR - ECHO pending official read - CT of the abdomen/pelvis with and without IV contrast: Suspected infiltrating mass of the right kidney. No hydronephrosis. Limited urographic phase evaluation due to limited excretion of contrast by the right kidney. Retroperitoneal lymphadenopathy. Small hiatal hernia. Two sclerotic osseous lesions, nonspecific. Additional minor findings as above. - Bone scan- pending will follow up as outpatient - Medications: * Flomax 0.4mg daily * Cefepime IV daily discontinued 07/19/18 Anemia -secondary to hematuria - Ferosol 325mg daily with Colace BID Constipation - last bowel movement was 2 days ago - Colace BID - Prune juice with each meal Prophylaxis - DVT risk 2: SCDs - VTE contraindication: hematuria - GI prophylaxis not indicated - Physical Therapy Disposition: Patient is discharged today. Patient to follow up as an outpatient with urologist Dr. Jose Andre # [phone]. Patient has an appointment scheduled for 07/21/[address] Jose Andre [address] [place] [address] All medical management per Dr. Miller Harvey Case discussed with Dr. Miller Harvey, Samina Curry DO, PGY-2
--- NOTE | 2018-07-20 15:40 | NM ---
Date of service: 07/19/2018 PROCEDURE: Whole Body Bone Scan HISTORY: renal cell carcinoma COMPARISON: Abdomen pelvis CT examination 06/22/2018. TECHNIQUE: Following administration of 24.1 Domi of Tc MDP multiplanar whole body images were obtained. FINDINGS: Evidence for bony metastatic disease: None. Degenerative uptake: None. Physiologic uptake: Normal physiologic activity in the kidneys. Other findings: None. IMPRESSION: No nuclear evidence of bony metastatic disease.
--- NOTE | 2018-07-21 11:03 | CARD ---
APPROVED REPORT Date of service: 07/18/2018 EXAM: Two-dimensional and M-mode echocardiogram with Doppler and color Doppler. Other Information Quality : GoodRhythm : INDICATION Pre-Op Renal Cancer 2D DIMENSIONS IVSd0.9 (0.7-1.1cm)LVDd4.3 (3.9-5.9cm) PWd1.1 (0.7-1.1cm)LVDs2.4 (2.5-4.0cm) FS (%) 44.1 %LVEF (%)70.0 (>50%) M-Mode DIMENSIONS Left Atrium (MM)3.79 (2.5-4.0cm)IVSd0.98 (0.7-1.1cm) Aortic Root3.30 (2.2-3.7cm)LVDd4.06 (4.0-5.6cm) Aortic Cusp Exc.2.30 (1.5-2.0cm)PWd0.98 (0.7-1.1cm) FS (%) 35 %LVDs2.63 (2.0-3.8cm) LVEF (%)65 (>50%) Mitral Valve MV E Ngdsbxhw59.4cm/sMV A Otztxhsi74.6cm/sE/A ratio0.7 TDI E/Lateral E'0.0E/Medial E'0.0 Tricuspid Valve TR Peak [id number]/sTR Peak Gr.[id number] LEFT VENTRICLE The left ventricle is normal size. There is normal left ventricular wall thickness. The left ventricular function is normal. The left ventricular ejection fraction is within the normal range. There is normal LV segmental wall motion. Transmitral Doppler flow pattern is abnormal. RIGHT VENTRICLE The right ventricle is normal size. ATRIA The left atrium size is normal. The right atrium size is normal. AORTIC VALVE The aortic valve is normal in structure. MITRAL VALVE The mitral valve is normal in structure. TRICUSPID VALVE The tricuspid valve is normal in structure. <Conclusion> Normal LV systolic function. Diastolic dysfunction. Normal chamber size. No significnat valvular abnormality seen.
== END 2018-07-20 10:00 | disposition home or self-care (01) | DRG 687 ==
LOC: C.ER 13:43 → C.9E 14:56 → C.6T 17:38
PROVIDERS: ADMIT Internal Medicine Nephrology; ATTEND Internal Medicine Nephrology
DX: C64.1 Malignant neoplasm of right kidney, except renal pelvis (principal); N02.9 Recurrent and persistent hematuria with unspecified morphologic changes; D64.9 Anemia, unspecified; G47.30 Sleep apnea, unspecified; I12.9 Hypertensive chronic kidney disease with stage 1 through stage 4 chronic kidney disease, or unspecified chronic kidney disease; I51.7 Cardiomegaly; J44.9 Chronic obstructive pulmonary disease, unspecified; K59.00 Constipation, unspecified; N40.1 Benign prostatic hyperplasia with lower urinary tract symptoms; N18.9 Chronic kidney disease, unspecified